=== PATIENT | male | born 1970 | race Hispanic/Latino ===

== ENCOUNTER 2016-04-03 23:08 | Emergency (ER) | payer SELFPAY ==
[~2016-04-03] VITALS: Ht 172.7 cm; Wt 77.1 kg
[~2016-04-03 23:08] MED LIST: CYCLOBENZAPRINE5 M1 PO; LATUDA80 MG PO; NAPROXEN500 MG PO; NEURONTIN300 MG PO; PROTONIX 40MG T40 MG PO; SAPHRIS5 MG PO; TRAMADOL50 MG PO
[2016-04-03 23:18] VITALS: BP 110/71
--- NOTE | 2016-04-03 23:26 | ED HEADACHE COMPLAINT ---
History of Present Illness General Chief Complaint: Headache Stated Complaint: BIBA RUTH Source: patient, old records, police Exam Limitations: no limitations Vital Signs & Intake/Output Vital Signs & Intake/Output Vital Signs Date Time Temp Pulse Resp B/P Pulse O2 O2 Flow FiO2 Ox Delivery Rate 04/03 2318 97.9 74 18 110/71 98 Room Air Allergies Coded Allergies: NO KNOWN ALLERGIES (03/02/15) Reconcile Medications Asenapine (Saphris) 5 MG TAB 1 TAB PO QPM SLEEP CYCLOBENZAPRINE HCL (Cyclobenzaprine Hydrochloride) 5 MG TAB 1-2 TAB PO QHS PRN MUSCLE SPASMS (Reported) Gabapentin (Neurontin) 300 MG CAP 1 CAP PO QHS RESTLESS LEGS/NERVES (Reported ) LURASIDONE HCL (Latuda) 80 MG TAB 1 TAB PO QPM BIPOLAR/ANXIETY Naproxen 500 MG TAB 1 TAB PO BID PAIN (Reported) Pantoprazole Sodium (Protonix) 40 MG TAB 40 MG PO DAILY ACID REFLUX (Reported ) TRAMADOL HCL (Tramadol) 50 MG TAB 1-2 TAB PO Q6P PRN PAIN Triage Note: PT FROM [place] C/O RUTH. PT HAS BEEN LOCKED [place] IN PD AND FOR THE PAST 6HRS HAS HAD A RUTH. PT A&OX3 ON ARRIVAL. VSS. POLICE AT BEDSIDE PT IN [place]. Triage Nurses Notes Reviewed? yes HPI: Patient brought in from police lockup for a headache. Patient states he's had this headache for the past 6 hours. The pain is frontal and is throbbing in nature. The pain is 8 out of 10. There is no blurry vision. There is no nausea or vomiting. No fever or chills. There is no trauma. There is no neck pain or neck stiffness. Patient states that he has not eaten since this morning and he feels that is contributing to his headache. Past History Travel History Traveled to [place] past 21 day No Medical History Any Pertinent Medical History? see below for history Neurological: NONE EENT: NONE Cardiovascular: hyperlipidemia Respiratory: SLEEP APNEA Gastrointestinal: NONE Hepatic: NONE Renal: NONE Musculoskeletal: NONE Psychiatric: anxiety, bipolar disease Endocrine: NONE Blood Disorders: NONE Cancer(s): NONE [employer]/Reproductive: NONE Surgical History Surgical History: non-contributory, N Psychosocial History Who do you live with Family What is your primary language [place] Tobacco Use: Quit >30 days ago ETOH Use: occasional use Illicit Drug Use: UTD Family History Hx Contributory? No Review of Systems Review of Systems Constitutional: Reports: no symptoms. Eyes: Reports: no symptoms. Respiratory: Reports: no symptoms. Cardiovascular: Reports: no symptoms. Gastrointestinal/Abdominal: Reports: no symptoms. Neurological/Psychological: Reports: see HPI, headache. Immunologic/Allergic: Reports: no symptoms. Physical Exam Physical Exam General Appearance: well developed/nourished, alert Head: atraumatic Eyes: Bilateral: PERRL, EOMI. Neck: normal inspection Respiratory: normal breath sounds, chest non-tender, no respiratory distress, lungs clear Cardiovascular: regular rate/rhythm, normal peripheral pulses Gastrointestinal: normal bowel sounds, soft, non-tender Extremities: normal inspection, normal capillary refill, normal range of motion, no edema Psychiatric: awake, alert, oriented x 3 Cranial Nerves: normal hearing, normal speech, PERRL Coordination/Gait: normal finger to nose Motor/Sensory: no motor/sensory deficits Core Measures Severe Sepsis Present: No Septic Shock Present: No Progress Differential Diagnosis: migraine RUTH, tension RUTH Plan of Care: Current Medications Sig/Lee Start time Last Medication Dose Stop Time Status Admin Ketorolac 60 MG ONCE ONE 04/03 2329 UNVr Tromethamine 04/03 2331 (Toradol) Departure Departure Disposition: HOME OR SELF CARE Condition: Stable Clinical Impression Primary Impression: Headache Referrals: PATIENT HAS NO PRIMARY CARE DR (PCP/Family) Additional Instructions: RETURN IF SYMPTOMS WORSEN OR FOR ANY CONCERNS Departure Forms: Customer Survey General Discharge Information
== END 2016-04-04 00:09 ==
LOC: ERH 23:08
DX: R51 Headache (principal)
CPT/HCPCS: 96372; J1885